=== PATIENT | male | born 1950 | race Caucasian/White ===

== ENCOUNTER 2019-08-01 07:27 | Emergency (ER) | payer MEDICARE, OTHER ==
[~2019-08-01] VITALS: Ht 175.3 cm; Wt 63.5 kg
[2019-08-01 08:14] LABS: BASOPHILS ABSOLUTE AUTO 0.04 K/mm3 (0.00-0.23); BASOPHILS PERCENT AUTO 0 % (0-2); EOSINOPHILS ABSOLUTE AUTO 0.06 K/mm3 (0.00-0.68); EOSINOPHILS PERCENT AUTO 0 % (0-6); Hematocrit 49.9 % (37.0-53.0); Hemoglobin 16.4 g/dL (13.5-17.5); IMMATURE GRAN ABSOLUTE AUTO 0.07 K/mm3 (0.00-0.10); IMMATURE GRAN PERCENT AUTO 0 % (0-1); LYMPHOCYTES ABSOLUTE AUTO 1.24 K/mm3 (0.84-5.20); LYMPHOCYTES PERCENT AUTO 8 % (21-46); MONOCYTES ABSOLUTE AUTO 1.16 K/mm3 (0.16-1.47); MONOCYTES PERCENT AUTO 7 % (4-13); Mean Corpuscular HGB 31.6 pg (26.0-34.0); Mean Corpuscular HGB Conc 32.9 g/dL (31.5-36.5); Mean Corpuscular Volume 96 fL (80-100); NEUTROPHILS ABSOLUTE AUTO 13.95 K/mm3 (1.96-9.15); NEUTROPHILS PERCENT AUTO 85 % (41-73); Platelet Count 249 K/mm3 (150-400); RDW Coefficient Variation 12.9 % (11.7-14.2); RDW Standard Deviation 46.2 fL (35.1-46.3); Red Blood Cell Count 5.19 M/mm3 (4.30-5.90); White Blood Cell Count 16.52 K/mm3 (4.00-11.30)
[2019-08-01 08:33] LABS: Alanine Aminotransfer (ALT/SGP 21 U/L (12-78); Albumin, Blood 3.6 g/dL (3.4-5.0); Albumin/Globulin Ratio 0.9 (0.8-1.8); Alk Phos 99 U/L (50-136); Anion Gap 4 mmol/L (6-16); Aspartate Aminotrans (AST/SGOT 23 U/L (12-37); Bilirubin, Total 0.5 mg/dL (0.1-1.0); Blood Urea Nitrogen 16 mg/dL (8-24); Bun/Creatinine Ratio 15.2 (12.0-20.0); CO2, Blood 32 mmol/L (21-32); Calcium, Blood 9.9 mg/dL (8.5-10.1); Chloride, Blood 100 mmol/L (98-108); Creatinine, Blood 1.05 mg/dL (0.60-1.20); Globulin, Blood 4.1 g/dL (2.2-4.0); Glomerular Filtration Rate >60 (60-); Glucose, Blood 118 mg/dL (70-99); Potassium, Blood 3.9 mmol/L (3.5-5.5); Sodium, Blood 136 mmol/L (136-145); Total Protein, Blood 7.7 g/dL (6.4-8.2); Troponin I <0.015 ng/mL (0.000-0.040)
[2019-08-01] MEDS ORDERED: WARF7.5 PO (09:20)
[2019-08-01] MEDS ORDERED: DONEPEZIL HCL10 MG PO (09:20)
[2019-08-01] MEDS ORDERED: HYDCHL25 PO (09:20)
[2019-08-01] MEDS ORDERED: NITR.4SL SL (09:27)
[2019-08-01] MEDS ORDERED: QUIN10 PO (09:27)
[2019-08-01] MEDS ORDERED: Aspir 8181 MG PO (09:28)
[2019-08-01] MEDS ORDERED: KAPSPARGO SPRIN50 MG PO (09:28)
[2019-08-01] MEDS ORDERED: HUPERZINE SERRAT1 GM MC (09:28)
[2019-08-01] MEDS ORDERED: Augmentin 875-1 EACH PO (09:45)
== END 2019-08-01 09:58 | disposition home or self-care (01) ==
LOC: ER 07:27
PROVIDERS: Emergency Medicine
DX: J18.9 Pneumonia, unspecified organism (principal); I25.2 Old myocardial infarction; F17.210 Nicotine dependence, cigarettes, uncomplicated; Z86.73 Personal history of transient ischemic attack (TIA), and cerebral infarction without residual deficits; Z79.899 Other long term (current) drug therapy; Z79.01 Long term (current) use of anticoagulants; Z79.82 Long term (current) use of aspirin
CPT/HCPCS: 36415; 71046; 80053; 84484; 85025; 93005; 93010; 99284-25

== ENCOUNTER 2021-09-15 17:36 | Emergency (ER) | payer MEDICARE, OTHER ==
[~2021-09-15] VITALS: Ht 175.3 cm; Wt 99.8 kg
[~2021-09-15 17:36] MED LIST: Aspir 8181 MG PO; Augmentin 875-1 EACH PO; DONEPEZIL HCL10 MG PO; HUPERZINE SERRAT1 GM MC; HYDCHL25 PO; KAPSPARGO SPRIN50 MG PO; NITR.4SL SL; QUIN10 PO; WARF7.5 PO
[2021-09-15 18:41] LABS: BASOPHILS ABSOLUTE AUTO 0.05 K/mm3 (0.00-0.23); BASOPHILS PERCENT AUTO 0 % (0-2); EOSINOPHILS ABSOLUTE AUTO 0.31 K/mm3 (0.00-0.68); EOSINOPHILS PERCENT AUTO 3 % (0-6); Hematocrit 46.1 % (37.0-53.0); IMMATURE GRAN ABSOLUTE AUTO 0.06 K/mm3 (0.00-0.10); IMMATURE GRAN PERCENT AUTO 1 % (0-1); LYMPHOCYTES ABSOLUTE AUTO 1.48 K/mm3 (0.84-5.20); LYMPHOCYTES PERCENT AUTO 12 % (21-46); MONOCYTES PERCENT AUTO 9 % (4-13); Mean Corpuscular HGB 31.2 pg (26.0-34.0); Mean Corpuscular HGB Conc 32.5 g/dL (31.5-36.5); Mean Corpuscular Volume 96 fL (80-100); Mean Platelet Volume 9.9 fL (9.1-12.4); NEUTROPHILS ABSOLUTE AUTO 9.46 K/mm3 (1.96-9.15); NEUTROPHILS PERCENT AUTO 76 % (41-73); Platelet Count 225 K/mm3 (150-400); RDW Coefficient Variation 13.8 % (11.7-14.2); RDW Standard Deviation 49.2 fL (35.1-46.3); Red Blood Cell Count 4.81 M/mm3 (4.30-5.90); White Blood Cell Count 12.46 K/mm3 (4.00-11.30)
[2021-09-15 19:02] LABS: Alanine Aminotransfer (ALT/SGP 19 U/L (12-78); Albumin, Blood 2.8 g/dL (3.4-5.0); Albumin/Globulin Ratio 0.7 (0.8-1.8); Alk Phos 96 U/L (50-136); Anion Gap 2 mmol/L (6-16); Aspartate Aminotrans (AST/SGOT 20 U/L (12-37); Bilirubin, Total 0.3 mg/dL (0.1-1.0); Blood Urea Nitrogen 17 mg/dL (8-24); Bun/Creatinine Ratio 16.7 (12.0-20.0); CO2, Blood 34 mmol/L (21-32); Calcium, Blood 9.6 mg/dL (8.5-10.1); Chloride, Blood 104 mmol/L (98-108); Creatinine, Blood 1.02 mg/dL (0.60-1.20); Globulin, Blood 4.1 g/dL (2.2-4.0); Glomerular Filtration Rate >60 (60-); Glucose, Blood 120 mg/dL (70-99); Potassium, Blood 3.4 mmol/L (3.5-5.5); Sodium, Blood 140 mmol/L (136-145); Total Protein, Blood 6.9 g/dL (6.4-8.2); Troponin I <0.015 ng/mL (0.000-0.040)
[2021-09-15] MEDS ORDERED: ATOR40TA PO (19:46)
== END 2021-09-15 21:15 | disposition home or self-care (01) ==
LOC: ER 17:36
PROVIDERS: Emergency Medicine
DX: R00.0 Tachycardia, unspecified (principal); R07.9 Chest pain, unspecified; Z79.899 Other long term (current) drug therapy; Z79.01 Long term (current) use of anticoagulants; Z79.82 Long term (current) use of aspirin; I25.2 Old myocardial infarction; F17.200 Nicotine dependence, unspecified, uncomplicated
CPT/HCPCS: 71045; 80053; 83880; 84484; 85025; 93005; 93010; 99285-25

== ENCOUNTER 2022-07-29 18:34 | Inpatient (IN) | payer MEDICARE ==
[~2022-07-29] VITALS: Ht 175.3 cm; Wt 86.8 kg
[~2022-07-29 18:34] MED LIST changes: +ATOR40TA PO
[2022-07-29 19:39] LABS: BASOPHILS ABSOLUTE AUTO 0.02 K/mm3 (0.00-0.23); BASOPHILS PERCENT AUTO 0 % (0-2); EOSINOPHILS PERCENT AUTO 0 % (0-6); IMMATURE GRAN PERCENT AUTO 1 % (0-1); LYMPHOCYTES ABSOLUTE AUTO 0.62 K/mm3 (0.84-5.20); LYMPHOCYTES PERCENT AUTO 4 % (21-46); MONOCYTES ABSOLUTE AUTO 1.48 K/mm3 (0.16-1.47); MONOCYTES PERCENT AUTO 9 % (4-13); Mean Corpuscular HGB 30.7 pg (26.0-34.0); Mean Corpuscular HGB Conc 31.9 g/dL (31.5-36.5); Mean Corpuscular Volume 96 fL (80-100); Mean Platelet Volume 10.6 fL (9.1-12.4); NEUTROPHILS ABSOLUTE AUTO 14.44 K/mm3 (1.96-9.15); NEUTROPHILS PERCENT AUTO 87 % (41-73); Platelet Count 209 K/mm3 (150-400); RDW Coefficient Variation 14.3 % (11.7-14.2); RDW Standard Deviation 50.2 fL (35.1-46.3); Red Blood Cell Count 4.89 M/mm3 (4.30-5.90); White Blood Cell Count 16.66 K/mm3 (4.00-11.30)
[2022-07-29 20:53] LABS: Albumin, Blood 2.4 g/dL (3.4-5.0); Albumin/Globulin Ratio 0.6 (0.8-1.8); Bilirubin, Total 0.6 mg/dL (0.1-1.0); Bun/Creatinine Ratio 23.1 (12.0-20.0); Calcium, Blood 8.2 mg/dL (8.5-10.1); Creatinine, Blood 1.04 mg/dL (0.60-1.20); Globulin, Blood 3.8 g/dL (2.2-4.0); Potassium, Blood 3.5 mmol/L (3.5-5.5); Total Protein, Blood 6.2 g/dL (6.4-8.2)
[2022-07-29 21:38] LABS: Influenza B, PCR NEGATIVE (NEGATIVE); Resp Syncytial Virus, PCR NEGATIVE (NEGATIVE); SARS-Cov-2 (COVID-19) PCR, MMC NEGATIVE (NEGATIVE)
[2022-07-29 21:39] LABS: Source, Urine Clean Catch
[2022-07-29 22:09] LABS: Bilirubin, Urine Neg (Neg); Blood, Urine 5+ (Neg); Glucose Qualitative, Urine Neg (Neg); Ketones, Urine Neg (Neg); Leukocyte Esterase, Urine Neg (Neg); Nitrite, Urine Neg (Neg); Protein, Urine 2+ (Neg); Specific Gravity, Urine 1.025 (1.003-1.022); Urobilinogen, Urine NORM (Normal)
[2022-07-29 22:13] LABS: Influenza A, PCR POSITIVE (NEGATIVE)
[2022-07-29 22:38] LABS: Appearance, Urine Hazy (Clear); Color, Urine Yellow (P-Yellow)
[2022-07-29 23:19] LABS: White Blood Cells, Urine 0-2 /hpf (0-5)
[2022-07-29 23:20] LABS: Amorphous Mod (0-Heavy); Bacteria Few /hpf; Hyaline Casts 0-2 /lpf (0-2); Squamous Epithelial Cells Few /hpf (Few)
[2022-07-30 02:01] LABS: International Normalized Ratio 2.89; Prothrombin Time Results 28.3 Sec (9.7-11.5)
--- NOTE | 2022-07-30 02:46 | NUR ---
TRANSFER NOTE REPORT TAKEN FROM KATHERINE RN FROM THE ED VIA TELEPHONE. PATIENT TO ROOM AT 0125. PATIENT APPEARS DISCHEVELED WITH DRY/DIRTY/FLAKY SKIN NOTED THROUGHOUT. PT IS MOANING CONSTANTLY AND UNABLE TO BE REDIRECTED. HX OF ALZHEIMERS NOTED. PT APPEARS FEARFUL WITH CARE AND ROLLING IN BED. AFEBRILE. BP STABLE. AFLUTTER NOTED WITH HR FLUCTUATING FROM 80-90S WHILE PT RESTING TO 120-150S WITH CARE/MOVEMENT. PT UNABLE TO PURPOSEFULLY ANSWER QUESTIONS FOR THIS RN AT THIS TIME. PT BECOMES LETHARGIC AT TIMES DURING ASSESSMENT AND DOES NOT ANSWER DIRECT QUESTIONS. THIS RN IS ONLY ABLE TO NOTE THAT PATIENT IS ORIENTED TO SELF AT THIS TIME. PATIENT ON 4L VIA NC WITH SPO2 >92%. BILATERAL RHONCHI HEARD THROUGHOUT. MOIST UNPRODUCTIVE/WEAK COUGH NOTED. PT UNABLE TO BE DIRECTED TO COUGH SPUTUM OUT. NS INFUSING INTO LFA IV AT 125MLS/HR PER ORDER. ORDER FOR IM ZYPREXA RECEIVED FROM MD PULLIAM DUE TO PT'S INCREASED AGGITATION/YELLING AND PULLING AT NASAL CANULA. PT TOLERATED WELL AND APPEARS TO BE RESTING AT THIS TIME. SIDE RAILS UP, BED ALARM ON, CALL LIGHT WITHIN REACH. THIS RN SITTING NEAR ROOM FOR SAFETY AND FREQUENT CHECKS. DROPLET ISOLATION PRECAUTIONS IN PLACE.
--- NOTE | 2022-07-30 05:38 | NUR ---
SHIFT SUMMARY PATIENT CONTINUES TO MOAN/YELL OUT THROUGH THE SHIFT. PRN IM ZYPREXA GIVEN, PT APPEARED TO GET SOME REST AFTER ADMINISTRATION. PATIENT NOT RESPONDING MEANINGFULLY TO QUESTIONS AND IS LETHARGIC FOR MOST OF THE SHIFT. NO FAMILY AT BEDSIDE FOR ADMISSION HX AND MED REC. PT UNABLE TO ANSWER QUESTIONS. PT CALLS OUT FOR HELP WITH CARE AT TIMES AND IS COOPERATIVE AT OTHER TIMES. PT ON TELE SHOWING AFLUTTER WITH HR 80-90S WHILE RESTING. ON 4L VIA NC WITH O2 SATS >92%. TACHYPNEA AND LABORED BREATHING NOTED; RT CONSULTED. PT WITH WEAK/MOIST NONPRODUCTIVE COUGH. SUCTION SET UP AT BEDSIDE BUT IS UNCOOPERATIVE WITH ORAL CARE AT THIS TIME; NOT FOLLOWING DIRECTIONS TO COUGH UP SECRETIONS. PATIENT AFEBRILE FOR THIS SHIFT. INCONTINENT OF URINE; ATTENDS IN PLACE. BED ALARM IN PLACE, RAILS UP, CALL LIGHT WITHIN REACH. FREQUENT CHECKS FOR SAFETY. NS INFUSING AT 125MLS/HR PER ORDER. THIS RN WILL CONTINUE TO MONITOR UNTIL SHIFT CHANGE AT 0700.
[2022-07-30 07:28] LABS: PCO2 Arterial 53.7 mmHg (35-45); PO2 Arterial 57.6 mmHg (80-100); pH Blood Arterial 7.39 (7.35-7.45)
[2022-07-30 08:01] LABS: BASOPHILS ABSOLUTE AUTO 0.02 K/mm3 (0.00-0.23); BASOPHILS PERCENT AUTO 0 % (0-2); EOSINOPHILS ABSOLUTE AUTO 0.01 K/mm3 (0.00-0.68); EOSINOPHILS PERCENT AUTO 0 % (0-6); Hematocrit 46.1 % (37.0-53.0); Hemoglobin 14.4 g/dL (13.5-17.5); IMMATURE GRAN ABSOLUTE AUTO 0.08 K/mm3 (0.00-0.10); IMMATURE GRAN PERCENT AUTO 1 % (0-1); LYMPHOCYTES PERCENT AUTO 6 % (21-46); MONOCYTES ABSOLUTE AUTO 1.38 K/mm3 (0.16-1.47); MONOCYTES PERCENT AUTO 8 % (4-13); Mean Corpuscular HGB 30.6 pg (26.0-34.0); Mean Corpuscular HGB Conc 31.2 g/dL (31.5-36.5); Mean Corpuscular Volume 98 fL (80-100); Mean Platelet Volume 10.3 fL (9.1-12.4); NEUTROPHILS ABSOLUTE AUTO 14.43 K/mm3 (1.96-9.15); NEUTROPHILS PERCENT AUTO 85 % (41-73); Platelet Count 169 K/mm3 (150-400); RDW Standard Deviation 51.2 fL (35.1-46.3); White Blood Cell Count 16.92 K/mm3 (4.00-11.30)
[2022-07-30 08:20] LABS: Albumin, Blood 2.5 g/dL (3.4-5.0); Albumin/Globulin Ratio 0.6 (0.8-1.8); Bilirubin, Total 0.6 mg/dL (0.1-1.0); Bun/Creatinine Ratio 25.4 (12.0-20.0); Calcium, Blood 8.8 mg/dL (8.5-10.1); Creatinine, Blood 1.18 mg/dL (0.60-1.20); Globulin, Blood 3.9 g/dL (2.2-4.0); Magnesium, Blood 2.3 mg/dL (1.6-2.4); Phosphorus, Blood 3.4 mg/dL (2.5-4.9); Potassium, Blood 3.9 mmol/L (3.5-5.5); Total Protein, Blood 6.4 g/dL (6.4-8.2)
--- NOTE | 2022-07-30 17:33 | NUR ---
SHIFT SUMMARY PT HAS BEEN RESTING IN BED THROUGHOUT THE DAY. THEY HAVE BEEN ORIENTED TO SELF ONLY. ON TELEMETRY TRACING, HEART RHYTHM IS ATRIAL FIBRILLATION. HEART RATE CLIMBED TO A SUSTAINED 140'S IN THE MORNING AND AGAIN IN THE AFTERNOON. PRN METOPROLOL IV WAS GIVEN FOR THESE ELEVATED HEART RATES WHICH RESPONDED QUICKLY AND STABILIZED IN THE 80'S. PT HAS BEEN LOUD, UNINTELLIGBLE MUMBLING WITH OCCASIONAL WORDS AND SHOUTING "HELP ME."
--- NOTE | 2022-07-30 19:41 | NUR ---
SPOKE TO DR PULLIAM TO REPORT PT HR 140-170S AFLUTTER, RR IN THE 40'S, SEVERELY AGITATED AND TRYING TO HIT ME WHEN I TRIED TO PLACE HIS OXYGEN NC ON HIM-WHICH IS AT 6L. HE HAS EXPIRATORY WHEEZES THAT ALMOST SOUND STRIDOUROUS. HE WILL NOT LEAVE OXYGEN IN PLACE. ORDERS GIVEN.
--- NOTE | 2022-07-31 01:30 | NUR ---
PT SATS 88-89%. HR AFLUTTER 130-160S. PT LETHARGIC, WILL OPEN EYES BUT GOES BACK TO SLEEP. LUNG SOUNDS VERY DIMINISHED AND TIGHT BILATERALLY W/EXP WHEEZES. BP 105/84. DR PULLIAM NOTIFIED. TO COME SEE PT.
--- NOTE | 2022-07-31 01:47 | NUR ---
DR PULLIAM AT BEDSIDE
[2022-07-31 02:15] LABS: BASOPHILS ABSOLUTE AUTO 0.03 K/mm3 (0.00-0.23); BASOPHILS PERCENT AUTO 0 % (0-2); EOSINOPHILS PERCENT AUTO 0 % (0-6); Hematocrit 45.2 % (37.0-53.0); Hemoglobin 14.2 g/dL (13.5-17.5); IMMATURE GRAN ABSOLUTE AUTO 0.07 K/mm3 (0.00-0.10); IMMATURE GRAN PERCENT AUTO 1 % (0-1); LYMPHOCYTES ABSOLUTE AUTO 0.64 K/mm3 (0.84-5.20); LYMPHOCYTES PERCENT AUTO 4 % (21-46); MONOCYTES ABSOLUTE AUTO 0.97 K/mm3 (0.16-1.47); MONOCYTES PERCENT AUTO 6 % (4-13); Mean Corpuscular HGB 31.1 pg (26.0-34.0); Mean Corpuscular HGB Conc 31.4 g/dL (31.5-36.5); Mean Corpuscular Volume 99 fL (80-100); Mean Platelet Volume 10.2 fL (9.1-12.4); NEUTROPHILS PERCENT AUTO 89 % (41-73); Platelet Count 160 K/mm3 (150-400); RDW Coefficient Variation 14.1 % (11.7-14.2); RDW Standard Deviation 51.7 fL (35.1-46.3); Red Blood Cell Count 4.56 M/mm3 (4.30-5.90); White Blood Cell Count 15.51 K/mm3 (4.00-11.30)
[2022-07-31 02:23] LABS: Base Excess Venous 3.8 mmol/L; Bicarbonate Venous 26.1 mmol/L (24.0-30.0); PCO2 Venous 62.6 mmHg (38-42); pH Blood Venous 7.29 (7.34-7.37)
[2022-07-31 02:31] LABS: Albumin, Blood 2.3 g/dL (3.4-5.0); Anion Gap 2 mmol/L (6-16); Blood Urea Nitrogen 34 mg/dL (8-24); Bun/Creatinine Ratio 30.6 (12.0-20.0); CO2, Blood 32 mmol/L (21-32); Calcium, Blood 8.5 mg/dL (8.5-10.1); Chloride, Blood 111 mmol/L (98-108); Creatinine, Blood 1.11 mg/dL (0.60-1.20); Glomerular Filtration Rate 70 (60-); Glucose, Blood 91 mg/dL (70-99); Magnesium, Blood 2.4 mg/dL (1.6-2.4); Phosphorus, Blood 3.2 mg/dL (2.5-4.9); Potassium, Blood 4.7 mmol/L (3.5-5.5); Sodium, Blood 145 mmol/L (136-145)
[2022-07-31 02:32] LABS: International Normalized Ratio 2.91; Prothrombin Time Results 28.5 Sec (9.7-11.5)
--- NOTE | 2022-07-31 02:32 | NUR ---
SPOKE TO DR PULLIAM RE VBG RESULTS. SPOKE TO RT ABOUT VBG RESULTS.
--- NOTE | 2022-07-31 05:42 | NUR ---
SHIFT SUMMERY PT HAS HAD AN EVENTFUL NIGHT, REQUIRING MULTIPLE IV PUSHES OF LOPRESSOR FOR AFLUTTER W/RATE UP TO 170S. HE HAS DESATURATED AT TIMES REQUIRING AN INCREASE OF OXYGEN UP TO 6L NC. HR AND OXYGEN SAT ARE WNL AT THIS TIME WELL BP. PT CONTINUES TO BE LETHARGIC, W/NO CHANGE IN MENTATION SINCE DR PULLIAM WAS AT BEDSIDE EARLIER IN THE SHIFT. LUNG SOUNDS CONTINUE TO BE VERY DECREASED W/EXPIRATORY WHEEZING. PT DOES RESPOND TO VERBAL AND TACTILE STIMULATION BUT FALLS BACK TO SLEEP.
--- NOTE | 2022-07-31 09:48 | NUR ---
Spoke with Dr Joe and discussed case. Pt appears to be at end of life. Pt has no family but does have friends that have been caring for him and knows his wishes. Friends are agreeable for comfort care. Pt resting in bed with his eyes closed. Pt wearing 2 L O2 viva mask. Pt appears comfortable at this time. Pt left undisturbed. Spoke with Primary RN Eduard and discussed case. Pt obtunded this AM. Attempted to contact Pt's friend for supportive conversation. Left message with request for return phone call.
--- NOTE | 2022-07-31 11:25 | NUR ---
"Spiritual Care | Nurse request. Also received notice of comfort care for Pt. He is alone and unresponsive. Read scripture and provided prayer for the Pt. We remain available for EOL care for family or friends who may visit."
--- NOTE | 2022-07-31 13:01 | NUR ---
Comfort Care Visit F/U visit this afternoon. Pt's friend Sunshine at bedside. Pt resting with his eyes closed and appears dyspneic as evidenced by work of breathing. Offered supportive visit to Sunshine and answered questions. Spoke with Primary RN Chaparro and discussed case. Reviewed comfort medications. Palliative Care will remain available
--- NOTE | 2022-07-31 17:59 | NUR ---
SHIFT SUMMARY PT HAS BEEN MINIMALLY RESPONSIVE THROUGHOUT THE SHIFT. SUPPLEMENTAL OXYGEN HAS BEEN TITRATED OVER THE COURSE OF THE DAY TO 40% FiO2 BY VENTI-MASK. COMFORT CARE MEASURES WERE STARTED THIS AM (SEE PROVIDER DOCUMENTATION). A FAMILY MEMBER SPENT SOME TIME AT THE BEDSIDE, PT RESPONSE/REACTION DID NOT CHANGE WITH THEIR PRESENCE. PALLIATIVE AND SPIRITUAL CARE SPENT SOME TIME WITH THE PT AND THIS RN HAS BEEN AT BEDSIDE WHEN AVAILABLE.
--- NOTE | 2022-07-31 21:34 | NUR ---
ASSUMPTION OF CARE THIS RN ASSUMED CARE OF PATIENT AT 1900. REPORT TAKEN FROM TORIE TORRES. PATIENT IS ON COMFORT CARE. MEDICATING FOR AIR HUNGER/PAIN PRN. SEE EMAR. SCOPALAMINE PATCH IN PLACE. NO AUDIBLE SECRETIONS HEARD/AUSCULTATED. SEE COMFORT CARE ASSESSMENT. PATIENT REPOSTIONED WITH PILLOWS Q2HRS. CONDOM CATHETER IN PLACE. PATIENT WITH VENTI MASK IN PLACE WITH 40% FIO2 FOR COMFORT. BED IN LOWEST POSITION, HOB ELEVATED, CALL LIGHT IN REACH WITH MUSIC PLAYING. THIS RN WILL CONTINUE TO MONITOR CLOSELY AND PROVIDE INTERVENTIONS NEEDED/ORDERED.
--- NOTE | 2022-08-01 05:24 | NUR ---
SHIFT SUMMARY PATIENT ON COMFORT CARE. SEE COMFORT CARE ASSESSMENT FOR DETAILS. PATIENT REPOSITIONED Q2HRS. PATIENT BREATHING IS LESS LABORED THAN BEGINNING OF SHIFT; DECREASED WOB NOTED. MEDICATING PER EMAR. PATIENT WITH VENTI MASK IN PLACE WITH 45% FIO2 FOR COMFORT. CONDOM CATHETER IN PLACE AND DRAINING TO GRAVITY. THIS RN WILL CONTINUE TO MONITOR AND PROVIDE INTERVENTIONS NEEDED/ORDERED UNTIL SHIFT CHANGE AT 0700.
--- NOTE | 2022-08-01 06:40 | NUR ---
PATIENT UPDATE THIS RN AT BEDSIDE AT 0545 FOR REPOSITIONING. PATIENT WITH INCREASED AIR HUNGER; MEDICATED PER EMAR. THIS RN REMAINED AT BEDSIDE PATIENT'S RESPIRATIONS SLOWED. ABSENCE OF BREATHING NOTED AT 0610 BY THIS RN. THIS RN REMOVED VENTI MASK AND AUSULTATED LUNG SOUNDS AND HEART SOUNDS, CHECKED PUPIL RESPONSE AND FELT CAROTID PULSE. BLUE RN TO TO VERIFY WITH THIS RN. PATIENT PRONOUNCED AT 0613. THIS RN PROCEDED TO REMOVE IV AND CONDOM CATHETER FROM PATIENT. FRIEND ANNABELLE NOTIFIED OF PASSING AND STATED THAT SHE DID NOT WISH TO COME TO THE HOSPITAL TO SEE THE PATIENT. FRIEND ANNABELLE STATED THAT SHE WOULD CHECK WITH OTHER FRIEND CE AND LET THE PCU STAFF KNOW IF SHE WOULD LIKE TO VISIT. ORLY ALANIS VERIFIED THERE IS NO FAMILY AND THAT [facility] IS THE PREFERRED MORTUARY.
== END 2022-08-01 10:00 | DRG 871 ==
LOC: ER 18:34 → EDBEDREQ 07-30 00:52 → PCU 07-30 00:59
PROVIDERS: Emergency Medicine; Family Medicine; ADMIT Internal Medicine
DX: A41.89 Other specified sepsis (principal); G92.8 Other toxic encephalopathy; J10.00 Influenza due to other identified influenza virus with unspecified type of pneumonia; J96.01 Acute respiratory failure with hypoxia; E87.20 Acidosis, unspecified; R65.20 Severe sepsis without septic shock; Z66 Do not resuscitate; F17.210 Nicotine dependence, cigarettes, uncomplicated; R82.90 Unspecified abnormal findings in urine; Z51.5 Encounter for palliative care; I48.91 Unspecified atrial fibrillation; G30.9 Alzheimer's disease, unspecified; F02.C0 Dementia in other diseases classified elsewhere, severe, without behavioral disturbance, psychotic disturbance, mood disturbance, and anxiety; Z20.822 Contact with and (suspected) exposure to COVID-19; B95.4 Other streptococcus as the cause of diseases classified elsewhere; Z86.73 Personal history of transient ischemic attack (TIA), and cerebral infarction without residual deficits; Z88.0 Allergy status to penicillin; Z79.899 Other long term (current) drug therapy; Z79.82 Long term (current) use of aspirin; Z79.02 Long term (current) use of antithrombotics/antiplatelets; Z79.01 Long term (current) use of anticoagulants; I25.2 Old myocardial infarction; Z95.2 Presence of prosthetic heart valve
CPT/HCPCS: 0241U; 36415; 36600; 51701; 70450; 71045; 80053; 80069; 81001; 82803; 83605; 83735; 84100; 85025; 85610; 87040; 94640; 94762; 96365; 96367; 96375; 99285-25; A9270; J0456; J0696; J2060; J2270; J7030; J7050